=== PATIENT | male | born 1965 | race American Indian/Alaskan Native ===

== ENCOUNTER 2021-12-03 11:09 | Emergency (ER) | payer SELFPAY ==
--- NOTE | 2021-12-03 14:42 | Emergency Department Report ---
ED General Adult HPI - General Chief complaint: Wound/Laceration Stated complaint: LEFT FOOT IN FECTION Time Seen by Provider: 12/03/21 13:50 Source: patient Mode of arrival: Ambulatory Limitations: No Limitations - History of Present Illness Initial comments: 56-year-old male with past medical history of diabetes, hypertension presents today with left foot wounds to plantar side of left foot. Patient reports he tried to take something out about a month and a half ago. Reports since then has had a wound with slight drainage. Denies any current pain at this moment. Reports that he does not have a current PCP at this moment. Denies fever chills and weakness. - Related Data Previous Rx's Medication Instructions Recorded Last Taken Type Cefuroxime Axetil [Cefuroxime] 500 mg PO BID 7 Days #14 tab 12/03/21 Unknown Rx Allergies Allergy/AdvReac Type Severity Reaction Status Date / Time No Known Allergies Allergy Unverified 12/03/21 11:40 ED Review of Systems ROS: Stated complaint: LEFT FOOT IN FECTION Other details as noted in HPI Constitutional: denies: chills, fever Eyes: denies: eye pain, eye discharge, vision change ENT: denies: ear pain, throat pain Respiratory: denies: cough, shortness of breath, wheezing Cardiovascular: denies: chest pain, palpitations Endocrine: no symptoms reported Gastrointestinal: denies: abdominal pain, nausea, diarrhea Genitourinary: denies: urgency, dysuria Musculoskeletal: denies: back pain, joint swelling, arthralgia Skin: other (foot ulcer left plantar side ). denies: rash, lesions Neurological: denies: headache, weakness, paresthesias Psychiatric: denies: anxiety, depression Hematological/Lymphatic: denies: easy bleeding, easy bruising ED Past Medical Hx - Past Medical History Previous Medical History?: Yes Hx Hypertension: No Hx Diabetes: Yes - Medications Home Medications: Home Medications Medication Instructions Recorded Confirmed Last Taken Type Cefuroxime Axetil [Cefuroxime] 500 mg PO BID 7 Days #14 tab 12/03/21 Unknown Rx ED Physical Exam - General Limitations: No Limitations General appearance: alert, in no apparent distress - Head Head exam: Present: atraumatic, normocephalic - Eye Eye exam: Present: normal appearance - ENT ENT exam: Present: mucous membranes moist - Neck Neck exam: Present: normal inspection - Respiratory Respiratory exam: Present: normal lung sounds bilaterally. Absent: respiratory distress - Cardiovascular Cardiovascular Exam: Present: regular rate, normal rhythm. Absent: systolic murmur, diastolic murmur, rubs, gallop - GI/Abdominal GI/Abdominal exam: Present: soft, normal bowel sounds - Rectal Rectal exam: Present: deferred - Extremities Exam Extremities exam: Present: normal inspection - Expanded Lower Extremity Exam Left Foot/Toe exam: Present: puncture wound (left foot ulcer present - less then 0.2mm indept and about 0.5cm in legnth. no active drainage. no streaking, no swelling noted. no necrotic tissue noted. ). Absent: swelling, ecchymosis, erythema - Back Exam Back exam: Present: normal inspection - Neurological Exam Neurological exam: Present: alert, oriented X3 - Psychiatric Psychiatric exam: Present: normal affect, normal mood - Skin Skin exam: Present: warm, dry, intact, normal color. Absent: rash ED Course Vital Signs 12/03/21 12/03/21 11:32 15:09 Temperature 98.3 F 95.8 F L Pulse Rate 80 77 Respiratory 16 16 Rate Blood Pressure 136/88 Blood Pressure 130/86 [Left] O2 Sat by Pulse 95 99 Oximetry ED Medical Decision Making - Medical Decision Making 56-year-old male past medical history includes diabetes type 2 Left foot ulcer about 2 mm in depth with less than 0.5 cm in length that has been present for about a month and a half. Patient does report cleaning his feet daily. No acute cellulites noted Slight drainage is present. No bone, muscle, necrotic tissue is noted. No fevers, no chills, no weakness, no pain with walking. No need for labs or imaging. Patient will be started on prophylaxis antibiotics. Patient will follow-up at [facility] to establish care with a PCP. Patient reports that he does check his feet daily and no longer digs into his feet. No other open sores are noted. . Patient is stable for discharge. Patient agrees with plan of care and verbalizes understanding * temp is error - patient was drinking water during his time in ER - patient is not hypothermic Vital Signs 12/03/21 12/03/21 11:32 15:09 Temperature 98.3 F 95.8 F L Pulse Rate 80 77 Respiratory 16 16 Rate Blood Pressure 136/88 Blood Pressure 130/86 [Left] O2 Sat by Pulse 95 99 Oximetry Critical care attestation.: If time is entered above; I have spent that time in minutes in the direct care of this critically ill patient, excluding procedure time. ED Disposition Clinical Impression: DM foot ulcer Qualifiers: Diabetic foot ulcer location: midfoot Diabetes mellitus type: type 2 Laterality: left Non-pressure ulcer stage: limited to breakdown of skin Qualified Code(s): E11.621 - Type 2 diabetes mellitus with foot ulcer Disposition: 01 HOME / SELF CARE / HOMELESS Is pt being admited?: No Does the pt Need Aspirin: No Condition: Stable Instructions: Diabetes Mellitus and Foot Care, Type 2 Diabetes Mellitus, Self Care, Adult, Diabetes Mellitus Type 2 in Adults (ED) Prescriptions: Cefuroxime Axetil [Cefuroxime] 500 mg PO BID 7 Days #14 tab Referrals: [facility] [Provider Group] - 3-5 Days Time of Disposition: 14:47 Print Language: OCCITAN
[2021-12-03 15:11] VITALS: BP 130/86
== END 2021-12-03 15:09 | disposition home or self-care (01) ==
LOC: ED 11:09
DX: E11.621 Type 2 diabetes mellitus with foot ulcer (principal); L97.529 Non-pressure chronic ulcer of other part of left foot with unspecified severity; Z79.899 Other long term (current) drug therapy
CPT/HCPCS: 82962; 99282